=== PATIENT | male | born 1960 | race Caucasian/White ===

== ENCOUNTER 2018-04-18 16:54 | Emergency (ER) | payer MEDICAID ==
[~2018-04-18] VITALS: Wt 96.0 kg
[~2018-04-18 16:54] MED LIST: ALBU8.5H8 INH; CYCL10TA7 PO; D-ME473S2 PO; IBUP-1542 PO
[2018-04-18 16:56] VITALS: BP 166/72; PULSE 78; RESP 18; Wt 96.0 kg
--- NOTE | 2018-04-18 19:04 | ERD ---
ER Documentation Chief Complaint Chief Complaint MEDICATION REFILL HPI This is a 57-year-old who presents for evaluation for medication refill, he states that he has had some left upper rib cage pain for the last 2 weeks. At that time he had a chest x-ray that was negative, COPD was noted, the patient denies shortness of breath or wheezing, he states the Motrin was working well and requests refill. States that pain is much better now, no fever. ROS All systems reviewed and are negative except as per history of present illness. Medications Home Meds Active Scripts Ibuprofen* (Motrin*) 600 Mg Tab, 600 MG PO Q6, #30 TAB Prov:VAZQUEZ WALKER MD 04/18/18 Albuterol Sulfate* (Proair HFA*) 8.5 Gm Hfa.aer.ad, 2 PUFF INH Q4H PRN for WHEEZING AND SOB, #1 INHALER Prov:JOHN VASQUES PA-C 04/08/18 Dextromethorphan Hb-Promethazine Hcl* (Promethazine DM* Syrup) 473 Ml Syrup, 5 ML PO Q6 PRN for COUGH, #90 ML Prov:JOHN VASQUES PA-C 04/08/18 Cyclobenzaprine Hcl* (Cyclobenzaprine Hcl*) 10 Mg Tablet, 10 MG PO TID, #15 TAB Prov:JOHN VASQUES PA-C 04/08/18 Ibuprofen* (Motrin*) 600 Mg Tab, 600 MG PO Q6H PRN for PAIN AND OR ELEVATED TEMP, #30 TAB Prov:JOHN VASQUES PA-C 04/08/18 Allergies Allergies: Coded Allergies: No Known Allergy (Unverified , 04/08/18) PMhx/Soc Medical and Surgical Hx: pt denies Medical Hx, pt denies Surgical Hx Hx Alcohol Use: Yes (occassional) Hx Substance Use: No Hx Tobacco Use: No Smoking Status: Never smoker Physical Exam Vitals Vital Signs Date Temp Pulse Resp B/P (MAP) Pulse Ox O2 O2 Flow FiO2 Time Delivery Rate 04/18/18 98.0 78 18 166/72 99 16:56 (103) Physical Exam Const: No acute distress Head: Atraumatic Eyes: Normal Conjunctiva ENT: Normal External Ears, Nose and Mouth. Neck: Full range of motion. No meningismus. Resp: Clear to auscultation bilaterally Cardio: Regular rate and rhythm, no murmurs Chest wall, there is very minimal tenderness over the left upper abdomen area along the rib cage area, there is no crepitus, there is no flank tenderness, no erythema induration or masses Abd: Soft, non tender, non distended. Normal bowel sounds Skin: No petechiae or rashes Back: No midline or flank tenderness Ext: No cyanosis, or edema Neur: Awake and alert Psych: Normal Mood and Affect Procedures/MDM 57-year-old male presents for request refill of Motrin, 600 mg. His pain is most likely musculoskeletal, he had a negative x-ray, and at this time I do not suspect any cardiopulmonary symptoms. He states that his pain is much improved, I did advise him that he should only be taking Motrin for another 2 weeks, at the most. If his symptoms change or worsen he should return to the ED immediately, he agreed to this at discharge the patient was in no acute distress. Departure Diagnosis: Primary Impression: Encounter for medication refill VAZQUEZ WALKER MD Apr 18, 2018 19:04
[2018-04-18] MEDS ORDERED: IBUP-1542 PO (19:05)
== END 2018-04-18 19:14 | disposition home or self-care (01) ==
LOC: FTE 16:54
DX: Z76.0 Encounter for issue of repeat prescription (principal)
CPT/HCPCS: 99281